=== PATIENT | male | born 1955 | race Two or more races ===

== ENCOUNTER 2025-04-07 20:56 | Emergency (ER) | payer OTHER ==
[~2025-04-07] VITALS: Ht 180.3 cm; Wt 86.2 kg
[2025-04-07] MEDS ORDERED: HYDROCHLOROTH12.5 M2 PO (21:05)
[2025-04-07] MEDS ORDERED: ADULT LOW DOSE81 M1 PO (21:05)
[2025-04-07] MEDS ORDERED: TAMS0.4C PO (21:05)
[2025-04-07] MEDS ORDERED: COZAAR25 MG PO (21:05)
[2025-04-07] MEDS ORDERED: ROSUVASTATIN CA10 MG PO (21:06)
[2025-04-07] MEDS ORDERED: FAMOtidine 10 MG/ML (4ML VIAL) IV PUSH STA (21:35)
[2025-04-07 22:33] LABS: BASO % 0.6 % (0.1-1.2); EOS # 0.13 (0.04-0.54); EOS % 1.5 % (0.7-7.0); LYMPH # 1.35 (1.18-3.74); LYMPH % 16.0 % (19.3-53.1); MEAN PLATELET VOLUME 11.50 fl (9.4-12.4); MONO # 0.53 (0.24-0.82); MONO % 6.3 % (4.7-12.5); NEUT # 6.34 (1.56-6.13); NEUT % 75.2 % (34.0-71.1); RED CELL DISTRIBUTION WIDTH 12.4 % (11.6-14.4)
[2025-04-07 22:59] LABS: ALT/SGPT 26.0 U/L (12-78); AST/SGOT 21.0 U/L (15-37); BILIRUBIN TOTAL 0.45 mg/dL (0.3-1.2); BUN CREA RATIO 17.0 (7.0-25.0); CREATININE SERUM 1.2 mg/dL (0.70-1.30); GFR 59.85; GLOBULINA 2.7 G/DL (2.4-3.5); GLUCOSE FASTING 108.0 mg/dL (65-100); OSMOLALITY SERUM 286.0 MOSM/KG (275-295)
== END 2025-04-07 23:49 | disposition home or self-care (01) ==
LOC: ER 22:00
PROVIDERS: General Practice
DX: R07.9 Chest pain, unspecified (principal)
CPT/HCPCS: 36415; 96365; 99282; J3490